=== PATIENT | female | born 1960 ===

== ENCOUNTER 2017-03-16 08:41 | Inpatient (IN) | payer MEDICAID ==
--- NOTE | 2017-03-16 09:21 | C.PDOC ---
History Of Present Illness 56 y.o female with PMH bipolar disorder and HTN presents to ED with complaints of abdominal distention for one month. She reports gradual increase in abdominal size and yesterday felt abdomen firm. She states she went to see Dr Villagomez yesterday who recommended ER visit. Patient denies abdominal pain however reports feeling short of breath and pressure when she urinates. Denies any fever, nausea, vomiting or change in bowel movements. Abd: Firm, ascites Time Seen by Provider: 03/16/17 09:12 Chief Complaint (Nursing): Abdominal Pain History Per: Patient History/Exam Limitations: no limitations Onset/Duration Of Symptoms: Days Current Symptoms Are (Timing): Still Present Severity: Moderate Past Medical History Reviewed: Historical Data, Nursing Documentation, Vital Signs Vital Signs: Last Vital Signs Temp 98.9 F 03/16/17 13:03 Pulse 97 H 03/16/17 13:03 Resp 22 03/16/17 13:03 BP 130/78 03/16/17 13:03 Pulse Ox 98 03/16/17 15:31 - Medical History PMH: Anxiety, Depression, HTN Family History: States: Unknown Family Hx - Social History Hx Alcohol Use: No Hx Substance Use: No - Immunization History Hx Tetanus Toxoid Vaccination: No Hx Influenza Vaccination: No Hx Pneumococcal Vaccination: No Review Of Systems Except As Marked, All Systems Reviewed And Found Negative. Constitutional: Negative for: Fever, Chills Cardiovascular: Negative for: Chest Pain, Palpitations Respiratory: Negative for: Cough, Shortness of Breath Gastrointestinal: Positive for: Abdominal Pain. Negative for: Nausea, Vomiting , Diarrhea, Constipation Genitourinary: Negative for: Vaginal Discharge, Vaginal Bleeding Musculoskeletal: Negative for: Back Pain Skin: Negative for: Rash Physical Exam - Physical Exam Appears: Non-toxic, No Acute Distress Skin: Warm, Dry, No Rash Head: Atraumatic, Normacephalic Eye(s): bilateral: Normal Inspection, PERRL Nose: Normal Oral Mucosa: Moist Lips: Normal Appearing Neck: Normal ROM Cardiovascular: Rhythm Regular Respiratory: Normal Breath Sounds, No Accessory Muscle Use Gastrointestinal/Abdominal: Distention, No Guarding, Ascites, Other (Firm) Extremity: Normal ROM, No Deformity, No Swelling Neurological/Psych: Oriented x3, Normal Speech ED Course And Treatment - Laboratory Results Result Diagrams: 03/16/17 09:44 03/16/17 09:44 Lab Interpretation: No Acute Changes O2 Sat by Pulse Oximetry: 98 (room air) Pulse Ox Interpretation: Normal Medical Decision Making Medical Decision Making: Impression: Abdominal distention Plan: * EKG * Amylase, BNP, CMP, Lipase, Lipid Panel * CBC * Urinalysis * CT A/P Progress: Labs reviewed patient has hypokalemia EKG shows Sinus rhythm with short AL at 85 bpm 10:57 DR Llanos calls ED to discuss CT results. Impresion: Complex large mostly cystic abdominal/pelvic mass measures approximately 30.9 cm in CC dimension, 20.6 cm in transverse dimension, and 20.3 cm in AP dimension. Appearance worrisome for cystic ovarian neoplasm. Patient remained afebrile and dn no acute distress. I explained results and plan for admission Patient case discussed with hospitalist who accepts patient to service Disposition - Disposition Disposition: HOSPITALIZED Disposition Time: 15:09 Condition: STABLE - POA Present On Arrival: None - Clinical Impression Clinical Impression: Abdominal mass - Scribe Statement The provider has reviewed the documentation as recorded by the Eliseibjennifer Silva All medical record entries made by the Scribe were at my direction and personally dictated by me. I have reviewed the chart and agree that the record accurately reflects my personal performance of the history, physical exam, medical decision making, and the department course for this patient. I have also personally directed, reviewed, and agree with the discharge instructions and disposition. Decision To Admit - Pt Status Changed To: Hospital Disposition Of: Inpatient - Admit Certification Admit to Inpatient:: After my assessment, the patient will require hospitalization for at least two midnights. This is because of the severity of symptoms shown, intensity of services needed, and/or the medical risk in this patient being treated as an outpatient. - InPatient: Physician Admission Certification: I certify that this patient requires 2 or more midnights of care for the following reason:: Patient with abdominal mass and needs oncology consult and further evaluation - . Bed Request Type: Regular Admitting Physician: Tate Garcia Patient Diagnosis: Abdominal mass
[2017-03-16 09:49] LABS: BASO # 0.1 K/uL (0.0-0.2); BASO % 0.7 % (0.0-2.0); EOS # 0.1 K/uL (0.0-0.7); EOS % 0.8 % (0.0-4.0); HEMATOCRIT 33.7 % (34.0-47.0); LYMPH # 1.3 K/uL (1.0-4.3); LYMPH % 15.5 % (20.0-40.0); MEAN CELL VOLUME 83.9 fL (81.0-99.0); MEAN CORPUSCULAR HEMOGLOBIN 27.5 pg (27.0-31.0); MEAN CORPUSCULAR HGB CONC 32.8 g/dL (33.0-37.0); MEAN PLATELET VOLUME 8.7 fL (7.2-11.7); MONO # 0.8 K/uL (0.0-0.8); MONO % 9.7 % (0.0-10.0); RED CELL DISTRIBUTION WIDTH 12.7 % (11.5-14.5); WHITE BLOOD COUNT 8.4 K/uL (4.8-10.8)
[2017-03-16 10:02] LABS: CHLORIDE 90 mmol/L (98-107); POTASSIUM 2.9 mmol/L (3.6-5.2); SODIUM 139 mmol/L (132-148)
[2017-03-16 10:04] LABS: ALB/GLOB RATIO 1.2 (1.0-2.1); ALKALINE PHOSPHATASE 79 U/L (38-126); ALT/SGPT 13 U/L (9-52); AMYLASE 42 U/L (30-110); AST/SGOT 16 U/L (14-36); BILIRUBIN,TOTAL 0.4 mg/dL (0.2-1.3); BLOOD UREA NITROGEN 13 mg/dL (7-17); CALCIUM 8.7 mg/dl (8.6-10.4); CARBON DIOXIDE 36 mmol/L (22-30); GFR AFRICAN-AMERICAN > 60; GLUCOSE,RANDOM 117 mg/dL (65-105)
[2017-03-16 10:05] LABS: CHOLESTEROL 192 mg/dL (0-199)
--- NOTE | 2017-03-16 11:01 | CT ---
CT abdomen and pelvis without IV contrast Indication: Abdominal distention and ascites Technique: Contiguous axial images of the abdomen and pelvis. Coronal and Sagittal reformats generated and reviewed. No IV or oral contrast administered. This CT exam was performed using 1 or more of the following dose reduction techniques: Automated exposure control, adjustment of the MAA and/or kV according to patient size, and/or use of iterative reconstruction technique. Radiation dose: Total exam DLP = 437.92 mGy-cm. Comparison: None available Findings: No visible consolidation, pleural effusion, pneumothorax. Examination markedly limited by paucity of intra-abdominal and intrapelvic fat as well as lack of oral or IV contrast. The noncontrast liver, spleen, kidneys, pancreas, adrenal glands, and gallbladder appear grossly unremarkable. The stomach is nondistended. Lack of oral contrast limits evaluation for bowel pathology. No evidence of bowel obstruction There is no definite free air. Complex large mostly cystic abdominal/pelvic mass measures approximately 30.9 cm in CC dimension, 20.6 cm in transverse dimension, and 20.3 cm in AP dimension. Suspect ovarian origin. The uterus is present. Uterus is present. Decompressed urinary bladder limits evaluation. Multilevel degenerative changes. Impression: Complex large mostly cystic abdominal/pelvic mass measures approximately 30.9 cm in CC dimension, 20.6 cm in transverse dimension, and 20.3 cm in AP dimension. Appearance worrisome for cystic ovarian neoplasm. Correlate clinically. Findings discussed with Gabby Avila on 03/16/17 at 10:57 a.m.
[2017-03-16] MEDS ORDERED: Potassium Chloride 20 mEq ER Tab PO STA (11:06)
[2017-03-16] MEDS ORDERED: Potassium Chloride 20 mEq ER Tab PO ONE (11:14)
--- NOTE | 2017-03-16 13:01 | CP.PCM.HP ---
<Brock Smith - Last Filed: 03/16/17 15:05> History of Present Illness - History of Present Illness History of Present Illness: CC: "Stomach is growing bigger and discomfort" 56 year old female with PMH of bipolar disorder and HTN who presents with abdominal discomfort. Patient's [id number] was bedside and translated. Patient states that it began about 2 months ago. At that time, she was sleeping and felt a weird tearing feeling in her stomach. Patient reports that it has progressively gotten worse since then but has not seen anyone until yesterday for the issue. She saw her PMD Dr. Villagomez, who recommended she go to the hospital. Patient states she has minimal discomfort rather than a ratable pain and unable to further describe the sensation. Although she reports no change in her appetite, she admits to a 25lb unintentional weight loss over the same time frame. She also reports indigestion, constipation, nausea, vomiting, depression , easy bruising and anxiety. Denies fever/chills, chest pain, headache, vertigo , SOB, palpitations, diarrhea, hematochezia, hematemesis, urinary symptoms, numbness/tingling, weakness. PMD: Dr. Villagomez PMH: bipolar disorder, HTN Meds: seroquel, xanax, ativan, Losartan/HCTZ PSH: denies Hosp: denies FH: Brother from Laryngeal CA in November 2016 Social: Pt is a heavy smoker but denies alcohol and drug use. She is sexually active but denies ever having any STD's. Present on Admission - Present on Admission Any Indicators Present on Admission: No History of DVT/PE: No History of Uncontrolled Diabetes: No Urinary Catheter: No Decubitus Ulcer Present: No Review of Systems - Review of Systems All systems: reviewed and no additional remarkable complaints except - Constitutional Constitutional: Weight Loss (has lost 25 lbs unintentionally). absent: Chills - Gastrointestinal Gastrointestinal: Abdominal Pain, Change in Bowel Habits, Constipation, Nausea, Vomiting - Integumentary Integumentary: absent: Rash, Jaundice - Neurological Neurological: absent: Headaches - Psychiatric Psychiatric: Abnormal Sleep Pattern, Depression - Hematologic/Lymphatic Hematologic: Easy Bruising Past Patient History - Infectious Disease Hx of Infectious Diseases: None - Past Medical History & Family History Past Medical History?: Yes - Past Social History Smoking Status: Heavy Smoker > 10 Cigarettes Daily Chewing Tobacco Use: No Cigar Use: No Alcohol: None Drugs: Denies - CARDIAC Hx Hypertension: Yes - PSYCHIATRIC Hx Anxiety: Yes Hx Depression: Yes Hx Substance Use: No - SURGICAL HISTORY Hx Surgeries: No - ANESTHESIA Hx Anesthesia: No Meds Allergies/Adverse Reactions: Allergies Allergy/AdvReac Type Severity Reaction Status Date / Time No Known Allergies Allergy Unverified 03/16/17 09:11 Physical Exam - Constitutional Appears: No Acute Distress - Head Exam Head Exam: ATRAUMATIC, NORMAL INSPECTION, NORMOCEPHALIC - Eye Exam Eye Exam: Normal appearance Pupil Exam: NORMAL ACCOMODATION, PERRL - Neck Exam Neck exam: Positive for: Full Rom. Negative for: Lymphadenopathy - Respiratory Exam Respiratory Exam: Clear to Auscultation Bilateral. absent: Rales, Rhonchi, Wheezes - Cardiovascular Exam Cardiovascular Exam: REGULAR RHYTHM, +S1, +S2 - GI/Abdominal Exam GI & Abdominal Exam: Diminished Bowel Sounds, Distended, Firm, Mass, Tenderness. absent: Hyperactive Bowel Sounds, Soft - Extremities Exam Extremities exam: Positive for: normal capillary refill, normal inspection, pedal pulses present. Negative for: calf tenderness - Back Exam Back exam: absent: CVA tenderness (L), CVA tenderness (R) - Neurological Exam Neurological exam: Alert, CN II-XII Intact, Oriented x3 - Psychiatric Exam Psychiatric exam: Anxious - Skin Skin Exam: Dry, Intact, Normal Color, Warm Results - Vital Signs Recent Vital Signs: Last Vital Signs Temp 98.2 F 03/16/17 09:01 Pulse 90 03/16/17 09:01 Resp 18 03/16/17 09:01 BP 150/91 H 03/16/17 09:01 Pulse Ox 98 03/16/17 11:07 - Labs Result Diagrams: 03/16/17 09:44 03/16/17 09:44 Assessment & Plan - Assessment and Plan (Free Text) Plan: 1. Abdominal/Pelvic Mass Admit to med/surg CT abd/pelvis: 30 cm x 20 cm x 20 cm abdominal mass likely ovarian in origin ( see full report) Heme/Onc consult, Dr. 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 Jensen, help appreciated Morphine 2 mg IVP Q4H PRN 2. Constipation Colace 100 mg PO BID Miralax 17 gm PO daily 3. Bipolar disorder Seroquel 50 mg PO HS Xanax 0.5 mg PO daily 4. HTN Patient states that she takes Losartan/HCTZ 100-25 mg PO daily BP normotensive will restart if elevated 5. Prophylactic Measures SCDs Lovenox 40 mg SC daily Protonix 40 mg PO daily [facility] <Tate Garcia - Last Filed: 04/19/17 14:52> Results - Vital Signs Recent Vital Signs: Last Vital Signs Temp 97.7 F 03/18/17 08:00 Pulse 131 H 03/18/17 16:52 Resp 20 03/18/17 08:00 BP 110/77 03/18/17 08:00 Pulse Ox 97 03/18/17 08:00 - Labs Result Diagrams: 03/18/17 07:45 03/18/17 07:45 Attending/Attestation - Attestation I have personally seen and examined this patient.: Yes I have fully participated in the care of the patient.: Yes I have reviewed all pertinent clinical information: Yes Notes (Text): Patient seen and examined with the resident. Agree with the resident's evaluation, assessment and plan. Abdominal/Pelvic Mass -Malignant likely Admit to med/surg CT abd/pelvis: 30 cm x 20 cm x 20 cm abdominal mass likely ovarian in origin
[2017-03-16 13:04] LABS: RBC URINE < 1 /hpf (0-3); URINE BILIRUBIN NEGATIVE (NEGATIVE); URINE BLOOD NEGATIVE (NEGATIVE); URINE COLOR Straw (YELLOW); URINE GLUCOSE (UA) NORMAL (Normal); URINE KETONE TRACE mg/dL (NEGATIVE); URINE LEUKOCYTE ESTERASE NEG Leu/uL (Negative); URINE PROTEIN NEGATIVE (NEGATIVE); URINE UROBILINOGEN NORMAL mg/dL (0.2-1.0); WBC URINE 1 /hpf (0-5)
[2017-03-16 14:49] LABS: CARCINOEMBRYONIC ANTIGEN 1.3 ng/mL (0-3.0)
[2017-03-16 14:52] LABS: CA 19-9 367 U/mL (0-37)
[2017-03-16] MEDS ORDERED: Pantoprazole 40 mg EC Tab PO ONE (14:56)
[2017-03-16] MEDS: Pantoprazole 40 mg EC Tab PO SCH (14:59)
[2017-03-16] MEDS: Enoxaparin 40 mg Syringe SC SCH (14:59)
--- NOTE | 2017-03-16 16:58 | CP.PCM.CON ---
History of Present Illness - History of Present Illness History of Present Illness: OBGYN Consult Note- Dr. Jensen's service CC: abdominal distension HPI: 56 year old female with PMHx significant for HTN, prior menorrhagia ( when she was menstrual) and psychiatric history (disorder unclear ) presents with complaints of increasing abdominal distension of about two month duration. Patient states that she does not have any accompanying pain but rather discomfort because of the size of her belly. She states that she has had three vaginal deliveries in the past without complications. Patient denies having any prior sexually transmitted infections. Patient admits to abdominal distension and discomfort and approx 25 pound weight loss despite the large abdominal mass. She denies abdominal pain, nausea , vomiting, urinary changes, vaginal bleeding, vaginal discharge, paresthesias or headaches at this time. OBGYN Hx Menarche: 11 years of age; Menopause: 46 or 47 years of age Menses: Regular occurring every 28 days lasting 6-7 days with heavy bleeding requiring frequent changing of pads ( approx 6-7) PMH: as mentioned above PSH: denies FamHx: Brother of laryngeal cancer in November 2016; Dad had DM, but of complications of heart disease following a heart operation; Mother of SBO complications Social: Pt is a heavy smoker but denies alcohol or illicit drug use; Currently sexually active Meds: Unsure, but will confirm once family member brings in medications this evening Allergies- denies PMD: Dr. Villagomez; last visit yesterday with recommendations to come to ED for further evaluation of growing mass. Review of Systems - Review of Systems Systems not reviewed;Unavailable: Language Barrier - Constitutional Constitutional: Weight Loss. absent: Headache, Weakness - EENT Eyes: absent: Change in Vision Ears: absent: Decreased Hearing, Ear Pain Nose/Mouth/Throat: absent: Nasal Congestion, Nasal Discharge - Cardiovascular Cardiovascular: absent: Chest Pain, Chest Pain at Rest - Respiratory Respiratory: absent: Cough, Dyspnea - Gastrointestinal Gastrointestinal: Bloating. absent: Excessive Flatus, Vomiting - Genitourinary Genitourinary: absent: Change in Urinary Stream, Difficulty Urinating, Dysuria, Flank Pain, Hematuria, Pyuria, Urinary Incontinence, Urinary Frequency, Urinary Urgency - Reproductive: Female Reproductive:Female: Post Menopausal. absent: Abnormal Vaginal Bleeding, Pelvic Pain - Menstruation Menstruation: Post Menopausal - Musculoskeletal Musculoskeletal: absent: Numbness - Integumentary Integumentary: Dry Skin. absent: Swelling - Neurological Neurological: absent: Abnormal Gait, Abnormal Hearing - Psychiatric Psychiatric: Anxiety - Endocrine Endocrine: absent: Polyuria - Hematologic/Lymphatic Hematologic: Easy Bruising Past Patient History - Infectious Disease Hx of Infectious Diseases: None - Past Medical History & Family History Past Medical History?: Yes - Past Social History Smoking Status: Heavy Smoker > 10 Cigarettes Daily Chewing Tobacco Use: No Cigar Use: No Alcohol: None Drugs: Denies - CARDIAC Hx Hypertension: Yes - PSYCHIATRIC Hx Anxiety: Yes Hx Depression: Yes Hx Substance Use: No - SURGICAL HISTORY Hx Surgeries: No - ANESTHESIA Hx Anesthesia: No Meds Allergies/Adverse Reactions: Allergies Allergy/AdvReac Type Severity Reaction Status Date / Time No Known Allergies Allergy Unverified 03/16/17 09:11 - Medications Medications: Current Medications Alprazolam (Xanax) 0.5 mg PO DAILY [facility] Docusate Sodium (Colace) 100 mg PO BID [facility] Enoxaparin Sodium (Lovenox) 40 mg SC DAILY [facility] Last Admin: 03/16/17 14:59 Dose: 40 mg Lactulose (Enulose) 20 gm PO BID [facility] Morphine Sulfate (Morphine) 2 mg IVP Q4 PRN PRN Reason: Pain, moderate (4-7) Last Admin: 03/16/17 14:07 Dose: 2 mg Pantoprazole Sodium (Protonix Ec Tab) 40 mg PO DAILY [facility] Last Admin: 03/16/17 14:59 Dose: 40 mg Quetiapine Fumarate (Seroquel) 50 mg PO [facility] Physical Exam - Constitutional Appears: Non-toxic, No Acute Distress - Head Exam Head Exam: ATRAUMATIC, NORMAL INSPECTION, NORMOCEPHALIC - Eye Exam Eye Exam: EOMI, Normal appearance, PERRL Pupil Exam: NORMAL ACCOMODATION - ENT Exam ENT Exam: Mucous Membranes Moist - Neck Exam Neck exam: Positive for: Full Rom - Respiratory Exam Respiratory Exam: absent: Wheezes - Cardiovascular Exam Cardiovascular Exam: +S1, +S2. absent: Systolic Murmur - GI/Abdominal Exam GI & Abdominal Exam: Distended, Firm, Normal Bowel Sounds. absent: Diminished Bowel Sounds, Guarding, Hypoactive Bowel Sounds, Rebound, Soft, Tenderness - Extremities Exam Extremities exam: Positive for: normal capillary refill, pedal pulses present. Negative for: calf tenderness, pedal edema - Neurological Exam Neurological exam: Alert, Oriented x3 - Psychiatric Exam Psychiatric exam: Anxious, Normal Affect, Normal Mood - Skin Skin Exam: Dry, Intact, Normal Color, Warm Results - Vital Signs Recent Vital Signs: Last Vital Signs Temp 98.9 F 03/16/17 13:03 Pulse 97 H 03/16/17 13:03 Resp 22 03/16/17 13:03 BP 130/78 03/16/17 13:03 Pulse Ox 98 03/16/17 15:31 - Labs Result Diagrams: 03/16/17 09:44 03/16/17 09:44 Labs: Laboratory Results - last 24 hr 03/16/17 12:56 Urine Color Straw Urine Clarity Clear Urine pH 7.0 Ur Specific [place] 1.002 L Urine Protein Negative Urine Glucose (UA) Normal Urine Ketones Trace Urine Blood Negative Urine Nitrate Negative Urine Bilirubin Negative Urine Urobilinogen Normal Ur Leukocyte Esterase Neg Urine WBC (Auto) 1 Urine RBC (Auto) < 1 Ur Squamous Epith Cells < 1 Assessment & Plan (1) Abdominal mass Assessment and Plan: CT abdomen with findings of abdominal mass of suspected ovarian etiology F/U Transvaginal and Abdominal US results F/U [facility] recommendations As there is no Quality Systems Specialist-Onc specialist onsite, will have to look into specialists in the area that patient can be referred to. CA 19-9 markedly elevated CA 125 mildly elevated Will follow and monitor Status: Acute
--- NOTE | 2017-03-16 18:58 | US ---
PROCEDURE: Pelvic ultrasound HISTORY: abdominal mass suspected to be of ovarian origin COMPARISON: 03/16/2017. CT abdomen pelvis.. TECHNIQUE: Transabdominal only. Real-time technique with 2D, duplex and color Doppler FINDINGS: Complex primarily cystic abdominal and pelvic mass 29 x 25 x 29 cm. A normal uterus and adnexa are not visualized. IMPRESSION: Nondiagnostic assessment of the uterus and adnexa. Anatomic structures are obscured by the large complex primarily cystic mass in the abdomen and pelvis.
[2017-03-17] MEDS ORDERED: Potassium Chloride 20 mEq ER Tab PO ONE (01:00)
--- NOTE | 2017-03-17 03:55 | CP.PCM.CON ---
History of Present Illness - History of Present Illness History of Present Illness: 56 year old female with a history of HTN, bipolar disorder, admitted with abdominal distension, found to have an abdominal/pelvic mass. The patient reports to abdominal distension slowly progressing which has become uncomfortable. She denies fevers and chills. She has no nausea and vomiting. She denies changes in stool caliber. Past medical history: HTN, bipolar disorder. Past surgical history: None Family history: Denies hematologic and oncologic problems Social history: Denies tobacco, alcohol, and illicit drug use. Allergies: NKA Review of systems: All remaining review of systems including HEENT, cardiovascular, respiratory, gastrointestinal, genitourinary, musculoskeletal, dermatologic, neurologic, and psychiatric are negative unless mentioned in the HPI. Past Patient History - Infectious Disease Hx of Infectious Diseases: None - Past Medical History & Family History Past Medical History?: Yes - Past Social History Smoking Status: Heavy Smoker > 10 Cigarettes Daily - CARDIAC Hx Hypertension: Yes - MUSCULOSKELETAL/RHEUMATOLOGICAL Hx Falls: Yes - PSYCHIATRIC Hx Substance Use: No - SURGICAL HISTORY Hx Surgeries: No - ANESTHESIA Hx Anesthesia: No Meds Allergies/Adverse Reactions: Allergies Allergy/AdvReac Type Severity Reaction Status Date / Time No Known Allergies Allergy Unverified 03/16/17 09:11 - Medications Medications: Current Medications Alprazolam (Xanax) 0.5 mg PO DAILY [facility] Docusate Sodium (Colace) 100 mg PO BID [facility] Last Admin: 03/16/17 18:20 Dose: 100 mg Enoxaparin Sodium (Lovenox) 40 mg SC DAILY [facility] Last Admin: 03/16/17 14:59 Dose: 40 mg Lactulose (Enulose) 20 gm PO BID [facility] Last Admin: 03/16/17 18:20 Dose: 20 gm Morphine Sulfate (Morphine) 2 mg IVP Q4 PRN PRN Reason: Pain, moderate (4-7) Last Admin: 03/16/17 14:07 Dose: 2 mg Pantoprazole Sodium (Protonix Ec Tab) 40 mg PO DAILY [facility] Last Admin: 03/16/17 14:59 Dose: 40 mg Pneumococcal Polyvalent Vaccine (Pneumovax 23 Vaccine) 0.5 ml IM .ONCE ONE Stop: 03/18/17 10:01 Quetiapine Fumarate (Seroquel) [address] [facility] Last Admin: 03/16/17 21:53 Dose: 50 mg Physical Exam - Head Exam Head Exam: ATRAUMATIC - Eye Exam Eye Exam: Normal appearance - ENT Exam ENT Exam: Mucous Membranes Dry - Respiratory Exam Respiratory Exam: NORMAL BREATHING PATTERN - Cardiovascular Exam Cardiovascular Exam: +S1, +S2 - GI/Abdominal Exam GI & Abdominal Exam: Distended - Extremities Exam Extremities exam: Positive for: normal inspection - Neurological Exam Neurological exam: Oriented x3 - Psychiatric Exam Psychiatric exam: Normal Affect, Normal Mood - Skin Skin Exam: Warm Results - Vital Signs Recent Vital Signs: Last Vital Signs Temp 98.2 F 03/17/17 00:07 Pulse 99 H 03/17/17 00:07 Resp 20 03/17/17 00:07 BP 111/69 03/17/17 00:07 Pulse Ox 96 03/17/17 00:07 - Labs Result Diagrams: 03/16/17 09:44 03/16/17 09:44 Labs: Laboratory Results - last 24 hr 03/16/17 12:56 Urine Color Straw Urine Clarity Clear Urine pH 7.0 Ur Specific [place] 1.002 L Urine Protein Negative Urine Glucose (UA) Normal Urine Ketones Trace Urine Blood Negative Urine Nitrate Negative Urine Bilirubin Negative Urine Urobilinogen Normal Ur Leukocyte Esterase Neg Urine WBC (Auto) 1 Urine RBC (Auto) < 1 Ur Squamous Epith Cells < 1 Assessment & Plan (1) Abdominal mass Assessment and Plan: agree with checking CT C/A/P with po + iv contrast if mass felt to be originating from ovary, will need outpatient STONE DRESSER ONC evaluation will check cea Status: Acute (2) Anemia Assessment and Plan: will check ferritin, retic count, b12, folate to further characterize. Status: Acute
[2017-03-17 08:30] LABS: BASO % 0.4 % (0.0-2.0); EOS % 0.4 % (0.0-4.0); HEMATOCRIT 34.1 % (34.0-47.0); LYMPH # 1.5 K/uL (1.0-4.3); LYMPH % 18.3 % (20.0-40.0); MEAN CELL VOLUME 83.7 fL (81.0-99.0); MEAN CORPUSCULAR HEMOGLOBIN 26.7 pg (27.0-31.0); MEAN CORPUSCULAR HGB CONC 31.9 g/dL (33.0-37.0); MEAN PLATELET VOLUME 8.8 fL (7.2-11.7); MONO # 0.7 K/uL (0.0-0.8); MONO % 8.5 % (0.0-10.0); RED CELL DISTRIBUTION WIDTH 12.9 % (11.5-14.5); WHITE BLOOD COUNT 8.1 K/uL (4.8-10.8)
[2017-03-17 08:43] LABS: INR 1.1
[2017-03-17 09:22] LABS: CHLORIDE 92 mmol/L (98-107)
[2017-03-17 09:23] LABS: POTASSIUM 3.4 mmol/L (3.6-5.2); SODIUM 139 mmol/L (132-148)
[2017-03-17 09:25] LABS: ALB/GLOB RATIO 1.2 (1.0-2.1); AST/SGOT 18 U/L (14-36); BILIRUBIN,TOTAL 0.6 mg/dL (0.2-1.3); CARBON DIOXIDE 32 mmol/L (22-30); GFR AFRICAN-AMERICAN > 60; TOTAL PROTEIN 7.1 g/dL (6.3-8.3)
[2017-03-17 09:26] LABS: ALKALINE PHOSPHATASE 80 U/L (38-126); ALT/SGPT 23 U/L (9-52); BLOOD UREA NITROGEN 10 mg/dL (7-17); CALCIUM 9.1 mg/dl (8.6-10.4); GLUCOSE,RANDOM 113 mg/dL (65-105); MAGNESIUM 2.4 mg/dL (1.6-2.3); PHOSPHOROUS 3.4 mg/dL (2.5-4.5)
[2017-03-17] MEDS ORDERED: Iohexol 240 (50 ml) PO ONE ×3 (09:30→12:15)
--- NOTE | 2017-03-17 09:51 | US ---
HISTORY: abdominal mass suspected to be of ovarian origin COMPARISON: Comparison is made to CT and pelvic ultrasound from 03/16/2017. TECHNIQUE: Sonographic evaluation of the abdomen. FINDINGS: LIVER: Measures 14.6 cm. Normal echogenicity of the liver parenchyma.No intrahepatic bile duct dilatation. GALLBLADDER: The gallbladder is not abnormally distended. There is no gallbladder wall edema or pericholecystic fluid. No shadowing or echogenic calculus identified. Minimal sludge seen. According to the technologist, the sonographic Joseph's sign was not present. COMMON BILE DUCT: Measures 3-4 mm. No stones. No dilatation. PANCREAS: Limited visualization of the pancreas. RIGHT KIDNEY: Measures 10.3 x 5.5 x 4.9cm. Normal echogenicity. No calculus, mass, or hydronephrosis. LEFT KIDNEY: Measures 11 x 6.2 x 4.2cm. Normal echogenicity. No calculus, mass, or hydronephrosis. SPLEEN: Normal in size and contour. No mass. AORTA: No aneurysmal dilatation within the visualized segments of the aorta. IVC: The visualized portions of the IVC appear unremarkable. OTHER FINDINGS: The visualized segments of the portal vein appear patent. Portion of the large pelvic mass seen. IMPRESSION: Limited study due to large pelvic mass. Minimal sludge in the gallbladder. No evidence of acute cholecystitis.
[2017-03-17 10:23] LABS: FOLATE 11.6 ng/mL
[2017-03-17] MEDS: Enoxaparin 40 mg Syringe SC SCH (10:49)
[2017-03-17] MEDS: Pantoprazole 40 mg EC Tab PO SCH (10:49)
[2017-03-17] MEDS ORDERED: Potassium Chloride 20 mEq/15 ml LIQ UD PO ONE (11:06)
--- NOTE | 2017-03-17 12:04 | CARD ---
APPROVED REPORT EKG Measurement Heart [id number] ID [id number] <Conclusion> Sinus rhythm with short ID Otherwise normal ECG
[2017-03-17] MEDS ORDERED: Iohexol 350mg/ml 100 ML ONE (12:41)
--- NOTE | 2017-03-17 14:34 | CT ---
PROCEDURE: CT Chest, Abdomen and Pelvis with intravenous contrast HISTORY: evaluate for metastatic disease COMPARISON: Comparison is made to the previous noncontrast study of the abdomen and pelvis dated 03/16/2017 TECHNIQUE: Axial and reformatted coronal and sagittal CT images of the chest abdomen and pelvis were obtained after IV contrast administration. Oral contrast was given. IV dose administered: 100 mL Omnipaque 350 Radiation dose: Total exam DLP = 633.9 mGy-cm. This CT exam was performed using one or more of the following dose reduction techniques: Automated exposure control, adjustment of the mA and/or kV according to patient size, and/or use of iterative reconstruction technique. FINDINGS: CT CHEST WITH CONTRAST: LUNGS: No evidence of suspicious mass in the lungs. Linear opacity seen at the lower lobes likely atelectasis or scar tissue. Focal atelectasis at the right lung base is also seen at associated with elevation of the right hemidiaphragm MEDIASTINUM: Unremarkable. Normal caliber aorta and pulmonary arterial trunk. No aortic dissection. Normal size heart. LYMPH NODES: Unremarkable. PLEURA: Unremarkable. No pneumothorax. No pleural fluid. BONES: Unremarkable. OTHER FINDINGS: None. CT ABDOMEN AND PELVIS: LIVER: Unremarkable. No gross lesion or ductal dilatation. GALLBLADDER AND BILE DUCTS: Unremarkable. PANCREAS: Unremarkable. No gross lesion or ductal dilatation. SPLEEN: Unremarkable. ADRENALS: Unremarkable. No mass. KIDNEYS AND URETERS: Unremarkable. No hydronephrosis. No solid mass. VASCULATURE: Unremarkable. No aortic aneurysm. BOWEL: Unremarkable. No obstruction. No gross mural thickening. APPENDIX: No evidence of appendicitis . PERITONEUM: Unremarkable. No free fluid. No free air. LYMPH NODES: Unremarkable. No enlarged lymph nodes. BLADDER: Unremarkable. REPRODUCTIVE: There is very large mass cystic mass lesion extending from the pelvis to the upper abdomen measures approximately 29 centimeter in the largest longitudinal diameter and 24 centimeter in the transverse diameter. There are heterogeneous solid enhancing component at the peripheral portion of this cystic mass lesion. Findings highly suspicious for malignant neoplasm likely ovarian neoplasm. The uterus is heterogeneous and displaced inferiorly by the above-mentioned cystic mass. BONES: No acute fracture. OTHER FINDINGS: None. IMPRESSION: Large complex cystic mass lesion in the pelvis and abdomen contains solid enhancing components highly suspicious for malignant neoplasm likely ovarian neoplasm. No evidence of metastasis in the lungs. Linear opacities at the lower lobes likely atelectasis.
--- NOTE | 2017-03-17 14:59 | CP.PCM.PN ---
Addendum entered and electronically signed by Brock Smith DO 03/17/17 15:05 : Family was bedside and they were informed of the plan at this point. By patient request, she would like Renetta ([id number], ) to be updated when when new information is available about course of action. Original Note: <Brock Smith - Last Filed: 03/17/17 14:54> Subjective - Date & Time of Evaluation Date of Evaluation: 03/17/17 Time of Evaluation: 09:55 - Subjective Subjective: PGY-1 Medicine Progress Note for Dr. Rubio Patient seen and examined at bedside. Patient was NPO overnight for Abdominal US. Patient also had CT chest/abdomen/pelvis with IV & PO contrast today. Patient is complaining that she is hungry. She was given small amount of water and ice chips until imaging studies are completed. No other complaints at this time. Denied fever/chills, cp, sob, palpitations, n/v/d, numbness/tingling. Objective - Vital Signs/Intake and Output Vital Signs (last 24 hours): Temp Pulse Resp BP Pulse Ox 98.4 F 85 20 136/58 L 96 03/17/17 08:22 03/17/17 08:22 03/17/17 08:22 03/17/17 08:22 03/17/17 08:22 Intake and Output: 03/17/17 03/17/17 06:59 18:59 Intake Total 100 Balance 100 - Medications Medications: Current Medications Alprazolam (Xanax) 0.[address] [facility] Last Admin: 03/17/17 11:12 Dose: 0.5 mg Docusate Sodium (Colace) [address] [facility] Last Admin: 03/17/17 10:47 Dose: Not Given Enoxaparin Sodium (Lovenox) [address] [facility] Last Admin: 03/17/17 10:49 Dose: 40 mg Lactulose (Enulose) [address] [facility] Last Admin: 03/17/17 10:47 Dose: Not Given Morphine Sulfate (Morphine) 2 mg IVP Q4 PRN PRN Reason: Pain, moderate (4-7) Last Admin: 03/16/17 14:07 Dose: 2 mg Pantoprazole Sodium (Protonix Ec Tab) [address] [facility] Last Admin: 03/17/17 10:49 Dose: 40 mg Pneumococcal Polyvalent Vaccine (Pneumovax 23 Vaccine) 0.5 ml IM .ONCE ONE Stop: 03/18/17 10:01 Quetiapine Fumarate (Seroquel) [address] [facility] Last Admin: 03/16/17 21:53 Dose: 50 mg - Labs Labs: 03/17/17 08:19 03/17/17 08:19 PT 12.7 SECONDS (9.7-12.2) H 03/17/17 08:19 INR 1.1 03/17/17 08:19 APTT 32 SECONDS (21-34) 03/17/17 08:19 - Constitutional Appears: No Acute Distress, Older Than Stated Age - Head Exam Head Exam: ATRAUMATIC, NORMOCEPHALIC - Eye Exam Eye Exam: EOMI, Normal appearance Pupil Exam: PERRL - ENT Exam ENT Exam: Mucous Membranes Moist - Neck Exam Neck Exam: Normal Inspection - Respiratory Exam Respiratory Exam: Clear to Ausculation Bilateral, NORMAL BREATHING PATTERN - Cardiovascular Exam Cardiovascular Exam: RRR, +S1, +S2 - GI/Abdominal Exam GI & Abdominal Exam: Distended, Firm, Tenderness, Diminished Bowel Sounds, Mass. absent: Guarding, Rigid, Soft, Pulsatile Mass, Rebound - Extremities Exam Extremities Exam: Normal Capillary Refill. absent: Calf Tenderness - Back Exam Back Exam: absent: CVA tenderness (L), CVA tenderness (R) - Neurological Exam Neurological Exam: Alert, Awake, CN II-XII Intact, Normal Gait, Oriented x3 - Psychiatric Exam Psychiatric exam: Normal Affect, Normal Mood - Skin Skin Exam: Dry, Intact, Normal Color, Warm Assessment and Plan - Assessment and Plan (Free Text) Plan: 1. Abdominal/Pelvic Mass CT Chest/Abd/Pelvis with IV & PO contrast: Large complex cystic mass lesion in the pelvis and abdomen contains solid enhancing components highly suspicious for malignant neoplasm likely ovarian neoplasm. No evidence of metastasis in the lungs. Linear opacities at the lower lobes likely atelectasis (see full report) AB US: Limited study due to large pelvic mass. Minimal sludge in the gallbladder. No evidence of acute cholecystitis. (see full report). Pelvic US: Nondiagnostic assessment of the uterus and adnexa. Anatomic structures are obscured by the large complex primarily cystic mass in the abdomen and pelvis (see full report). CT abd/pelvis: 30 cm x 20 cm x 20 cm abdominal mass likely ovarian in origin ( see full report) Heme/Onc consult, Dr. Vuong, help appreciated PROPERTY SUPERVISOR consult, Dr. Jensen, help appreciated Morphine 2 mg IVP Q4H PRN 2. Constipation Colace 100 mg PO BID Miralax 17 gm PO daily 3. Bipolar disorder Seroquel 50 mg PO HS Xanax 0.5 mg PO daily 4. HTN Patient states that she takes Losartan/HCTZ 100-25 mg PO daily BP normotensive will restart if elevated 5. Prophylactic Measures SCDs Lovenox 40 mg SC daily Protonix 40 mg PO daily [facility] <JoanneHerbie M - Last Filed: 03/18/17 12:41> Objective - Vital Signs/Intake and Output Vital Signs (last 24 hours): Temp Pulse Resp BP Pulse Ox 97.7 F 131 H 20 110/77 97 03/18/17 08:00 03/18/17 08:00 03/18/17 08:00 03/18/17 08:00 03/18/17 08:00 Intake and Output: 03/18/17 03/18/17 06:59 18:59 Intake Total 200 Balance 200 - Labs Labs: 03/18/17 07:45 03/18/17 07:45 PT 12.7 SECONDS (9.7-12.2) H 03/17/17 08:19 INR 1.1 03/17/17 08:19 APTT 32 SECONDS (21-34) 03/17/17 08:19 Attending/Attestation - Attestation I have personally seen and examined this patient.: Yes I have fully participated in the care of the patient.: Yes I have reviewed all pertinent clinical information, including history, physical exam and plan: Yes Notes (Text): 03/18/17 12:41 patient was seen and examined at bedside with the resident Workup is in progress for abdominal mass Oncology is on board Discharge planning when cleared by oncology.
[2017-03-17] MEDS: Oxycodone/Acetaminophen 5/325 mg Tab PO PRN (21:26)
[2017-03-18 07:59] LABS: BASO # 0.1 K/uL (0.0-0.2); BASO % 0.5 % (0.0-2.0); EOS % 0.2 % (0.0-4.0); HEMATOCRIT 38.4 % (34.0-47.0); LYMPH # 0.8 K/uL (1.0-4.3); LYMPH % 7.4 % (20.0-40.0); MEAN CELL VOLUME 83.4 fL (81.0-99.0); MEAN CORPUSCULAR HEMOGLOBIN 27.2 pg (27.0-31.0); MEAN CORPUSCULAR HGB CONC 32.6 g/dL (33.0-37.0); MEAN PLATELET VOLUME 8.7 fL (7.2-11.7); MONO # 0.4 K/uL (0.0-0.8); PLATELET COUNT 614 K/uL (130-400); RED CELL DISTRIBUTION WIDTH 12.9 % (11.5-14.5); WHITE BLOOD COUNT 10.2 K/uL (4.8-10.8)
[2017-03-18 08:13] LABS: CHLORIDE 93 mmol/L (98-107); POTASSIUM 4.3 mmol/L (3.6-5.2); SODIUM 137 mmol/L (132-148)
[2017-03-18 08:15] LABS: BILIRUBIN,TOTAL 0.5 mg/dL (0.2-1.3); GFR AFRICAN-AMERICAN > 60
[2017-03-18 08:16] LABS: ALB/GLOB RATIO 1.2 (1.0-2.1); ALKALINE PHOSPHATASE 69 U/L (38-126); ALT/SGPT 8 U/L (9-52); AST/SGOT 20 U/L (14-36); BLOOD UREA NITROGEN 13 mg/dL (7-17); CARBON DIOXIDE 29 mmol/L (22-30); GLUCOSE,RANDOM 177 mg/dL (65-105); TOTAL PROTEIN 6.4 g/dL (6.3-8.3)
[2017-03-18 08:17] LABS: CALCIUM 8.6 mg/dl (8.6-10.4)
[2017-03-18 08:20] VITALS: BP 110/77; PULSE 131; RESP 20; TEMP 97.7; O2SAT 97
[2017-03-18] MEDS ORDERED: Pneumococcal 23-Valent Vaccine IM ONE (10:00)
[2017-03-18 10:07] LABS: TOTAL CELLS COUNTED 100
[2017-03-18 10:08] LABS: NEUTROPHIL 91 % (50-75)
[2017-03-18] MEDS: Pantoprazole 40 mg EC Tab PO SCH (10:17)
[2017-03-18] MEDS: Oxycodone/Acetaminophen 5/325 mg Tab PO PRN (10:18)
[2017-03-18] MEDS: Enoxaparin 40 mg Syringe SC SCH (10:18)
--- NOTE | 2017-03-18 10:41 | CP.PCM.DIS ---
<Cheryl Cervantes - Last Filed: 03/18/17 14:04> Provider - Provider Date of Admission: 03/16/17 11:09 Attending physician: Tate Garcia MD Primary care physician: Dr. Villagomez Consults: Dr. Jensen - OBGYN Dr. Kena Vuong - Heme/Onc Time Spent in preparation of Discharge (in minutes): 35 Hospital Course - Lab Results Lab Results: Most Recent Lab Values WBC 10.2 K/uL (4.8-10.8) 03/18/17 07:45 RBC 4.61 Mil/uL (3.80-5.20) 03/18/17 07:45 Hgb 12.5 g/dL (11.0-16.0) 03/18/17 07:45 Hct 38.4 % (34.0-47.0) 03/18/17 07:45 MCV 83.4 fL (81.0-99.0) 03/18/17 07:45 MCH 27.2 pg (27.0-31.0) 03/18/17 07:45 MCHC 32.6 g/dL (33.0-37.0) L 03/18/17 07:45 RDW 12.9 % (11.5-14.5) 03/18/17 07:45 Plt Count 614 K/uL (130-400) H 03/18/17 07:45 MPV 8.7 fL (7.2-11.7) 03/18/17 07:45 Neut % (Auto) 87.9 % (50.0-75.0) H 03/18/17 07:45 Lymph % (Auto) 7.4 % (20.0-40.0) L 03/18/17 07:45 Whiteside % (Auto) 4.0 % (0.0-10.0) 03/18/17 07:45 Eos % (Auto) 0.2 % (0.0-4.0) 03/18/17 07:45 Baso % (Auto) 0.5 % (0.0-2.0) 03/18/17 07:45 Neut # 8.9 K/uL (1.8-7.0) H 03/18/17 07:45 Lymph # 0.8 K/uL (1.0-4.3) L 03/18/17 07:45 Whiteside # 0.4 K/uL (0.0-0.8) 03/18/17 07:45 Eos # 0.0 K/uL (0.0-0.7) 03/18/17 07:45 Baso # 0.1 K/uL (0.0-0.2) 03/18/17 07:45 Neutrophils % (Manual) 91 % (50-75) H 03/18/17 07:45 Lymphocytes % (Manual) 6 % (20-40) L 03/18/17 07:45 Monocytes % (Manual) 3 % (0-10) 03/18/17 07:45 Platelet Estimate Increased (NORMAL) H 03/18/17 07:45 Anisocytosis (manual) Slight 03/18/17 07:45 Retic Count 1.1 % (0.5-1.5) 03/17/17 08:19 PT 12.7 SECONDS (9.7-12.2) H 03/17/17 08:19 INR 1.1 03/17/17 08:19 APTT 32 SECONDS (21-34) 03/17/17 08:19 Sodium 137 mmol/L (132-148) 03/18/17 07:45 Potassium 4.3 mmol/L (3.6-5.2) 03/18/17 07:45 Chloride 93 mmol/L (98-107) L 03/18/17 07:45 Carbon Dioxide 29 mmol/L (22-30) 03/18/17 07:45 Anion Gap 19 (10-20) 03/18/17 07:45 BUN 13 mg/dL (7-17) 03/18/17 07:45 Creatinine 0.7 MG/DL (0.7-1.2) 03/18/17 07:45 Est GFR ( Amer) > 60 03/18/17 07:45 Est GFR (Non-Af Amer) > 60 03/18/17 07:45 Random Glucose 177 mg/dL (65-105) H 03/18/17 07:45 Calcium 8.6 mg/dl (8.6-10.4) 03/18/17 07:45 Phosphorus 3.4 mg/dL (2.5-4.5) 03/17/17 08:19 Magnesium 2.4 mg/dL (1.6-2.3) H 03/17/17 08:19 Ferritin 193.0 ng/mL 03/17/17 08:19 Total Bilirubin 0.5 mg/dL (0.2-1.3) 03/18/17 07:45 AST 20 U/L (14-36) 03/18/17 07:45 ALT 8 U/L (9-52) L D 03/18/17 07:45 Alkaline Phosphatase 69 U/L (38-126) 03/18/17 07:45 NT-Pro-B Natriuret Pep 337 pg/mL (0-900) 03/16/17 09:44 Total Protein 6.4 g/dL (6.3-8.3) 03/18/17 07:45 Albumin 3.5 g/dL (3.5-5.0) 03/18/17 07:45 Globulin 2.9 gm/dL (2.2-3.9) 03/18/17 07:45 Albumin/Globulin Ratio 1.2 (1.0-2.1) 03/18/17 07:45 Triglycerides 86 mg/dL (0-149) 03/16/17 09:44 Cholesterol 192 mg/dL (0-199) 03/16/17 09:44 LDL Cholesterol Direct 122 mg/dL (0-129) 03/16/17 09:44 HDL Cholesterol 40 mg/dL (30-70) 03/16/17 09:44 Amylase 42 U/L (30-110) 03/16/17 09:44 Lipase 10 U/L (23-300) L 03/16/17 09:44 Carcinoembryonic Ag 1.3 ng/mL (0-3.0) 03/17/17 08:19 CA 19-9 Antigen 367 U/mL (0-37) H 03/16/17 09:44 CA 125 Antigen 37.9 U/mL (0-35) H 03/16/17 09:44 Vitamin B12 365 pg/mL (239-931) 03/17/17 08:19 Folate 11.6 ng/mL 03/17/17 08:19 Urine Color Straw (YELLOW) 03/16/17 12:56 Urine Clarity Clear (Clear) 03/16/17 12:56 Urine pH 7.0 (5.0-8.0) 03/16/17 12:56 Ur Specific [place] 1.002 (1.003-1.030) L 03/16/17 12:56 Urine Protein Negative mg/dL (NEGATIVE) 03/16/17 12:56 Urine Glucose (UA) Normal mg/dL (Normal) 03/16/17 12:56 Urine Ketones Trace mg/dL (NEGATIVE) 03/16/17 12:56 Urine Blood Negative (NEGATIVE) 03/16/17 12:56 Urine Nitrate Negative (NEGATIVE) 03/16/17 12:56 Urine Bilirubin Negative (NEGATIVE) 03/16/17 12:56 Urine Urobilinogen Normal mg/dL (0.2-1.0) 03/16/17 12:56 Ur Leukocyte Esterase Neg Kayleigh/uL (Negative) 03/16/17 12:56 Urine WBC (Auto) 1 /hpf (0-5) 03/16/17 12:56 Urine RBC (Auto) < 1 /hpf (0-3) 03/16/17 12:56 Ur Squamous Epith Cells < 1 /hpf (0-5) 03/16/17 12:56 - Hospital Course Hospital Course: On Admission: 56 year old female with PMH of bipolar disorder and HTN who presents with abdominal discomfort. Patient's [id number] was bedside and translated. Patient states that it began about 2 months ago. At that time, she was sleeping and felt a weird tearing feeling in her stomach. Patient reports that it has progressively gotten worse since then but has not seen anyone until yesterday for the issue. She saw her PMD Dr. Villagomez, who recommended she go to the hospital. Patient states she has minimal discomfort rather than a ratable pain and unable to further describe the sensation. Although she reports no change in her appetite, she admits to a 25lb unintentional weight loss over the same time frame. She also reports indigestion, constipation, nausea, vomiting, depression, easy bruising and anxiety. Denies fever/chills, chest pain, headache , vertigo, SOB, palpitations, diarrhea, hematochezia, hematemesis, urinary symptoms, numbness/tingling, weakness. During hospital stay: CT abd/pelvis initially showed 30 cm x 20 cm x 20 cm abdominal mass likely ovarian in origin (see full report). Repeat CT Chest/Abd/ Pelvis with IV & PO contrast showed Large complex cystic mass lesion in the pelvis and abdomen contains solid enhancing components highly suspicious for malignant neoplasm likely ovarian neoplasm. No evidence of metastasis in the lungs. Linear opacities at the lower lobes likely atelectasis (see full report) AB US showed Limited study due to large pelvic mass. Minimal sludge in the gallbladder. No evidence of acute cholecystitis. (see full report). Pelvic US showed Nondiagnostic assessment of the uterus and adnexa. Anatomic structures are obscured by the large complex primarily cystic mass in the abdomen and pelvis (see full report). OBGYN (Dr. Jensen) and heme/onc (Dr. Kena Vuong) were consulted and recommended outpatient follow up with a lead recreation assistant onc surgeon. CA 19-9 markedly elevated at 376, and CA 125 mildly elevated at 37.0. CEA was within normal limits. Patient was continued on her home dose of Seroquel and Xanax for bipolar disorder and anxiety. BP was controlled. Patient stable for discharge home today. She is to follow up with Dr. Villagomez within one week of discharge for post hospital care. Patient is to also follow up with Dr Vuong, heme/onc, within one week of discharge. Patient will require outpatient surgical gynecology-oncology follow up and was given a referral to a specialist at [facility], Dr. Clarissa Cruz at the [facility]. She is to call and make an appointment. Patient is to resume her home medications. She was given a prescription for Xanax 0.5 mg to be taken once by mouth at bedtime. Patient is to return to the emergency room if symptoms persist or return. All instructions explained to the patient and she agrees. Discharge Exam - Head Exam Head Exam: ATRAUMATIC, NORMOCEPHALIC - Eye Exam Eye Exam: EOMI, Normal appearance, PERRL Pupil Exam: NORMAL ACCOMODATION - Respiratory Exam Respiratory Exam: Clear to PA & Lateral, NORMAL BREATHING PATTERN. absent: Respiratory Distress - Cardiovascular Exam Cardiovascular Exam: REGULAR RHYTHM, +S1, +S2 - GI/Abdominal Exam GI & Abdominal Exam: Diminished Bowel Sounds, Distended, Soft. absent: Firm, Guarding, Tenderness - Back Exam Back exam: NORMAL INSPECTION. absent: CVA tenderness (L), CVA tenderness (R), paraspinal tenderness - Neurological Exam Neurological exam: Alert, CN II-XII Intact, Oriented x3 - Psychiatric Exam Psychiatric exam: Normal Affect, Normal Mood - Skin Skin Exam: Dry, Intact, Normal Color, Warm Discharge Plan - Discharge Medications Prescriptions: Alprazolam [Xanax] 0.5 mg PO HS #30 tablet - Follow Up Plan Condition: STABLE Disposition: HOME/ ROUTINE Instructions: Ovarian Cyst (DC), Heart Healthy Diet (DC) Additional Instructions: Patient stable for discharge home. She is to follow up with Dr. Villagomez within one week of discharge for post hospital care. Patient is to also follow up with lavinia Harvey/onc, within one week of discharge. Patient will require outpatient surgical gynecology-oncology follow up and was given a referral to a specialist at [facility], Dr. Clarissa Cruz at the [facility]. She is to call and make an appointment. Patient is to resume her home medications. She was given a prescription for Xanax 0.5 mg to be taken once by mouth at bedtime. Patient is to return to the emergency room if symptoms persist or return. All instructions explained to the patient and she agrees. Referrals: Fritz Vuong MD [Staff Provider] - Clarissa Cruz MD [Medical Doctor] - Edvin Villagomez MD [Staff Provider] - <Tate Garcia - Last Filed: 04/19/17 15:12> Provider - Provider Date of Admission: 03/16/17 11:09 Attending physician: Tate Garcia MD Hospital Course - Lab Results Lab Results: Most Recent Lab Values WBC 10.2 K/uL (4.8-10.8) 03/18/17 07:45 RBC 4.61 Mil/uL (3.80-5.20) 03/18/17 07:45 Hgb 12.5 g/dL (11.0-16.0) 03/18/17 07:45 Hct 38.4 % (34.0-47.0) 03/18/17 07:45 MCV 83.4 fL (81.0-99.0) 03/18/17 07:45 MCH 27.2 pg (27.0-31.0) 03/18/17 07:45 MCHC 32.6 g/dL (33.0-37.0) L 03/18/17 07:45 RDW 12.9 % (11.5-14.5) 03/18/17 07:45 Plt Count 614 K/uL (130-400) H 03/18/17 07:45 MPV 8.7 fL (7.2-11.7) 03/18/17 07:45 Neut % (Auto) 87.9 % (50.0-75.0) H 03/18/17 07:45 Lymph % (Auto) 7.4 % (20.0-40.0) L 03/18/17 07:45 Whiteside % (Auto) 4.0 % (0.0-10.0) 03/18/17 07:45 Eos % (Auto) 0.2 % (0.0-4.0) 03/18/17 07:45 Baso % (Auto) 0.5 % (0.0-2.0) 03/18/17 07:45 Neut # 8.9 K/uL (1.8-7.0) H 03/18/17 07:45 Lymph # 0.8 K/uL (1.0-4.3) L 03/18/17 07:45 Whiteside # 0.4 K/uL (0.0-0.8) 03/18/17 07:45 Eos # 0.0 K/uL (0.0-0.7) 03/18/17 07:45 Baso # 0.1 K/uL (0.0-0.2) 03/18/17 07:45 Neutrophils % (Manual) 91 % (50-75) H 03/18/17 07:45 Lymphocytes % (Manual) 6 % (20-40) L 03/18/17 07:45 Monocytes % (Manual) 3 % (0-10) 03/18/17 07:45 Platelet Estimate Increased (NORMAL) H 03/18/17 07:45 Anisocytosis (manual) Slight 03/18/17 07:45 Retic Count 1.1 % (0.5-1.5) 03/17/17 08:19 PT 12.7 SECONDS (9.7-12.2) H 03/17/17 08:19 INR 1.1 03/17/17 08:19 APTT 32 SECONDS (21-34) 03/17/17 08:19 Sodium 137 mmol/L (132-148) 03/18/17 07:45 Potassium 4.3 mmol/L (3.6-5.2) 03/18/17 07:45 Chloride 93 mmol/L (98-107) L 03/18/17 07:45 Carbon Dioxide 29 mmol/L (22-30) 03/18/17 07:45 Anion Gap 19 (10-20) 03/18/17 07:45 BUN 13 mg/dL (7-17) 03/18/17 07:45 Creatinine 0.7 MG/DL (0.7-1.2) 03/18/17 07:45 Est GFR ( Amer) > 60 03/18/17 07:45 Est GFR (Non-Af Amer) > 60 03/18/17 07:45 Random Glucose 177 mg/dL (65-105) H 03/18/17 07:45 Calcium 8.6 mg/dl (8.6-10.4) 03/18/17 07:45 Phosphorus 3.4 mg/dL (2.5-4.5) 03/17/17 08:19 Magnesium 2.4 mg/dL (1.6-2.3) H 03/17/17 08:19 Ferritin 193.0 ng/mL 03/17/17 08:19 Total Bilirubin 0.5 mg/dL (0.2-1.3) 03/18/17 07:45 AST 20 U/L (14-36) 03/18/17 07:45 ALT 8 U/L (9-52) L D 03/18/17 07:45 Alkaline Phosphatase 69 U/L (38-126) 03/18/17 07:45 NT-Pro-B Natriuret Pep 337 pg/mL (0-900) 03/16/17 09:44 Total Protein 6.4 g/dL (6.3-8.3) 03/18/17 07:45 Albumin 3.5 g/dL (3.5-5.0) 03/18/17 07:45 Globulin 2.9 gm/dL (2.2-3.9) 03/18/17 07:45 Albumin/Globulin Ratio 1.2 (1.0-2.1) 03/18/17 07:45 Triglycerides 86 mg/dL (0-149) 03/16/17 09:44 Cholesterol 192 mg/dL (0-199) 03/16/17 09:44 LDL Cholesterol Direct 122 mg/dL (0-129) 03/16/17 09:44 HDL Cholesterol 40 mg/dL (30-70) 03/16/17 09:44 Amylase 42 U/L (30-110) 03/16/17 09:44 Lipase 10 U/L (23-300) L 03/16/17 09:44 Carcinoembryonic Ag 1.3 ng/mL (0-3.0) 03/17/17 08:19 CA 19-9 Antigen 367 U/mL (0-37) H 03/16/17 09:44 CA 125 Antigen 37.9 U/mL (0-35) H 03/16/17 09:44 Vitamin B12 365 pg/mL (239-931) 03/17/17 08:19 Folate 11.6 ng/mL 03/17/17 08:19 Urine Color Straw (YELLOW) 03/16/17 12:56 Urine Clarity Clear (Clear) 03/16/17 12:56 Urine pH 7.0 (5.0-8.0) 03/16/17 12:56 Ur Specific [place] 1.002 (1.003-1.030) L 03/16/17 12:56 Urine Protein Negative mg/dL (NEGATIVE) 03/16/17 12:56 Urine Glucose (UA) Normal mg/dL (Normal) 03/16/17 12:56 Urine Ketones Trace mg/dL (NEGATIVE) 03/16/17 12:56 Urine Blood Negative (NEGATIVE) 03/16/17 12:56 Urine Nitrate Negative (NEGATIVE) 03/16/17 12:56 Urine Bilirubin Negative (NEGATIVE) 03/16/17 12:56 Urine Urobilinogen Normal mg/dL (0.2-1.0) 03/16/17 12:56 Ur Leukocyte Esterase Neg Kayleigh/uL (Negative) 03/16/17 12:56 Urine WBC (Auto) 1 /hpf (0-5) 03/16/17 12:56 Urine RBC (Auto) < 1 /hpf (0-3) 03/16/17 12:56 Ur Squamous Epith Cells < 1 /hpf (0-5) 03/16/17 12:56 Attending/Attestation - Attestation I have personally seen and examined this patient.: Yes I have fully participated in the care of the patient.: Yes I have reviewed all pertinent clinical information, including history, physical exam and plan: Yes Notes (Text): Patient seen and examined with the resident. Agree with the resident's evaluation, assessment and plan. Large complex cystic mass lesion in the pelvis and abdomen contains solid enhancing components highly suspicious for malignant neoplasm likely ovarian neoplasm.
== END 2017-03-18 12:00 | disposition home or self-care (01) | DRG 367 ==
LOC: C.ER 08:41 → MERGE 11:09 → C.9E 11:09 → C.3T 16:52
PROVIDERS: ADMIT Internal Medicine; ATTEND Internal Medicine
DX: D39.10 Neoplasm of uncertain behavior of unspecified ovary (principal); R19.00 Intra-abdominal and pelvic swelling, mass and lump, unspecified site; I10 Essential (primary) hypertension; D64.9 Anemia, unspecified; R97.1 Elevated cancer antigen 125 [CA 125]; F31.9 Bipolar disorder, unspecified; K59.00 Constipation, unspecified; F17.210 Nicotine dependence, cigarettes, uncomplicated

== ENCOUNTER 2017-07-21 10:29 | Day surgery (SDC) | payer MEDICAID ==
[2017-07-13 09:46] VITALS: BMI 24.6
[2017-07-21] MEDS ORDERED: Midazolam 2 MG/2 ML VIAL ONE (13:11)
[2017-07-21] MEDS ORDERED: Propofol 10 mg/ml Inj (20 ML) ONE (13:11)
[2017-07-21] MEDS ORDERED: ceFAZolin IV 1 gm in Dextrose 0 GM/0 ML BAG IVPB ONE (13:23)
[2017-07-21] MEDS ORDERED: Lidocaine 1% MPF (30 ml) Inj ONE (13:23)
--- NOTE | 2017-07-21 14:16 | PCM.SURG1 ---
Surgeon's Initial Post Op Note - Surgeon's Notes Surgeon: Dr. Valles Adaptive Physical Education Teacher: Dr. Murrieta PGY-3, [place] OMS-III Type of Anesthesia: IV Sedation, Local Pre-Operative Diagnosis: Right portacath Operative Findings: Right portacath Post-Operative Diagnosis: Right portacath Operation Performed: Removal of right portacath Specimen/Specimens Removed: portacath Estimated Blood Loss: EBL {In ML}: 5 Blood Products Given: N/A Drains Used: No Drains Post-Op Condition: Good Date of Surgery/Procedure: 07/21/17 Time of Surgery/Procedure: 14:16
[2017-07-21 14:49] VITALS: O2SAT 98
[2017-07-21 15:48] VITALS: BP 126/67; PULSE 68; RESP 18; TEMP 96.9
--- NOTE | 2017-07-22 21:48 | OP ---
PROCEDURE DATE: 07/21/2017 SURGEON: Dr. Valles. TRIMMER OPERATOR: Dr. Murrieta. ANESTHESIA: Local with IV sedation. ANESTHESIOLOGIST: Dr. Krishnamurthy. PREOPERATIVE DIAGNOSIS: Ovarian cancer. POSTOPERATIVE DIAGNOSIS: Ovarian cancer. PROCEDURE: Removal of Port-A-Cath. DESCRIPTION OF OPERATION: With the patient in the supine position, having received IV sedation, the right upper chest and lower neck were prepped and draped in the usual sterile manner. The patient was noted to have a right-sided Port-A-Cath with the port noted on the chest wall and the entry point in the right internal jugular vein. The insertion incision was infiltrated with lidocaine and re-incised and the incision taken down to the hub area of the port. The tubing was dissected and then extracted from the vein without difficulty and then . The port was sharply dissected free of the subcutaneous pocket and removed. The pocket was examined for hemostasis and closure was performed with running subcuticular sutures of 4-0 Monocryl and Steri-Strips. Dry sterile dressing was applied. The patient tolerated the procedure well and transferred to recovery room in stable condition. ESTIMATED BLOOD LOSS FOR THE PROCEDURE: 5 mL. Blayne Valles MD
== END 2017-07-21 15:50 | disposition home or self-care (01) ==
LOC: C.SDS 10:29
PROVIDERS: ATTEND Specialist
DX: C56.2 Malignant neoplasm of left ovary (principal)
CPT/HCPCS: 36590; 88300; J2250; J2704; J3010